=== PATIENT | male | born 1985 | race Caucasian/White ===

== ENCOUNTER 2016-12-31 02:06 | Inpatient (IN) | payer OTHER ==
[2016-12-31] VITALS (11 sets, daily range): BP systolic 52–99; BP diastolic 32–63; PULSE 107–126; RESP 19–20; TEMP 91.6–94.1; O2SAT 0–100
[~2016-12-31] VITALS: Ht 195.6 cm; Wt 74.6 kg
[2016-12-31 02:44] LABS: AUTOMATED NEUTROPHIL # 4.3 TH/MM3 (1.8-7.7); BASOPHIL % 0.3 % (0.0-2.0); EOSINOPHIL # 0.1 TH/MM3 (0-0.4); EOSINOPHIL % 1.5 % (0.0-4.0); HEMATOCRIT 24.6 % (39.0-51.0); LYMPH % 38.3 % (9.0-44.0); MEAN CELL VOLUME 94.2 FL (80.0-100.0); MEAN CORPUSCULAR HEMOGLOBIN 30.9 PG (27.0-34.0); MEAN CORPUSCULAR HGB CONC 32.8 % (32.0-36.0); MONO % 4.2 % (0.0-8.0); NEUT % 55.7 % (16.0-70.0); PLATELET COUNT 138 TH/MM3 (150-450); RED BLOOD COUNT 2.61 MIL/MM3 (4.50-5.90); WHITE BLOOD COUNT 7.7 TH/MM3 (4.0-11.0)
[2016-12-31 02:45] LABS: HEMO FLAGS AUTO DIFF
[2016-12-31] MEDS ORDERED: TRANEXAMIC ACID INJ 1,000 MG/10 ML AMP ONE (02:46)
[2016-12-31 02:47] LABS: I-STAT POTASSIUM 3.8 MMOL/L (3.5-4.9)
[2016-12-31 03:02] LABS: INTERNATIONAL NORMALIZED RATIO 2.1 RATIO; PROTHROMBIN TIME - PATIENT 23.5 SEC (9.8-11.6)
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
[2016-12-31] MEDS ORDERED: IOHEXOL 350 MG/ML 10 ML VIAL (for RAD DIAG) OTHER ONE (03:15)
[2016-12-31 03:17] LABS: APTT (PATIENT) 172.5 SEC (24.3-30.1)
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
[2016-12-31] MEDS ORDERED: 3% SALINE INJ 500 ML IV ONE (03:30)
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
[2016-12-31 03:35] LABS: BANDS 11 % (0-6); CORRECTED NUCLEATED RBC 1 /100 WBC (0-0); EOSINOPHILS 2 % (0-4); METAMYELOCYTES 7 % (0-1); MYELOCYTES 1 % (0-0); NEUTROPHIL # MANUAL DIFF 3.7 TH/MM3 (1.8-7.7); POLYS (SEG NEUTROPHILS) 29 % (16-70); SCAN/DIFF FINAL DIFF MANUAL; WBC DIFF SAMPLE 100
[2016-12-31 03:36] LABS: OVALOCYTES 1+ (NORMAL); PLATELET ESTIMATE SMEAR LOW (NORMAL); PLATELET MORPHOLOGY NORMAL (NORMAL)
[2016-12-31] MEDS ORDERED: SODIUM CHLOR 0.9% 1000 ML INJ 1,000 ML IV SCH (03:36)
[2016-12-31] MEDS ORDERED: ENALAPRILAT 1.25 MG/ML VIAL IV PRN (03:45)
[2016-12-31] MEDS ORDERED: ONDANSETRON HCL 4 MG/2 ML VIAL IV PRN (03:45)
[2016-12-31] MEDS ORDERED: PANTOPRAZOLE SODIUM 40 MG VIAL IVP SCH (03:45)
[2016-12-31] MEDS ORDERED: CHLORHEXIDINE GLUCONATE 2 % 1 PACK (2 CLOTHS) TOP PRN (03:45)
[2016-12-31] MEDS ORDERED: MISCELLANEOUS NURSING INFORMATION XX SCH (03:45)
[2016-12-31] MEDS ORDERED: SODIUM CHLORIDE 0.9% FLUSH 10 ML FLUSH IV FLUSH PRN (03:45)
[2016-12-31] MEDS ORDERED: NOREPINEPHRINE 4 MG/4 ML AMP ONE ×3 (03:55→06:04)
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
[2016-12-31] MEDS ORDERED: SODIUM BICARBONATE 8.4% INJ 50 MEQ/50 ML SYR IV PUSH ONE ×2 (04:00)
[2016-12-31] MEDS ORDERED: CHLORHEXIDINE GLUCONATE 2 % 1 PACK (2 CLOTHS) TOP SCH (04:00)
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
[2016-12-31] MEDS ORDERED: VASOPRESSIN INJ 40 UNITS in DEXTROSE 5% IN WATER 100ML INJ 98 ML IV SCH ×2 (04:29)
[2016-12-31] MEDS ORDERED: SODIUM BICARBONATE 8.4% INJ 50 ML ONE (04:30)
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
[2016-12-31 04:51] LABS: AUTOMATED NEUTROPHIL # 5.9 TH/MM3 (1.8-7.7); BASOPHIL % 0.4 % (0.0-2.0); EOSINOPHIL % 0.5 % (0.0-4.0); LYMPH % 23.8 % (9.0-44.0); LYMPHOCYTE # 1.9 TH/MM3 (1.0-4.8); MEAN CELL VOLUME 85.4 FL (80.0-100.0); MEAN CORPUSCULAR HEMOGLOBIN 30.2 PG (27.0-34.0); MEAN CORPUSCULAR HGB CONC 35.4 % (32.0-36.0); NEUT % 74.3 % (16.0-70.0); PLATELET COUNT 57 TH/MM3 (150-450); RED BLOOD COUNT 3.28 MIL/MM3 (4.50-5.90); RED CELL DISTRIBUTION WIDTH 14.8 % (11.6-17.2)
[2016-12-31 04:54] LABS: BLOOD GAS BASE EXCESS -14.8 mmol/L (-2-2); BLOOD GAS CARBOXYHEMOGLOBIN 0.5 % (0-4); BLOOD GAS HCO3 13 mmol/L (22-26); BLOOD GAS METHEMOGLOBIN 1.1 % (0-2); BLOOD GAS O2 HGB SATURATION 98 % (90-100); BLOOD GAS OXYGEN CONTENT 9.1 Vol % (12.0-20.0); BLOOD GAS PCO2 44 mmHg (38-42); BLOOD GAS PO2 512 mmHg (61-120); BLOOD GAS TOTAL HGB 5.6 G/DL (12.0-16.0); TEMP CORR TO 98.6
[2016-12-31 04:55] LABS: CRITICAL VALUE YES; DRAW SITE ART LINE; FIO2 100 %; OXYGEN DEVICE VENTILATOR; STAT NO; VENT SETTINGS PRVC/AC
[2016-12-31] MEDS ORDERED: PHENYLEPHRINE HCL 10 MG/ML VIAL ONE ×4 (05:04→06:16)
[2016-12-31 05:10] LABS: HEMO FLAGS AUTO DIFF
[2016-12-31 05:15] LABS: INTERNATIONAL NORMALIZED RATIO 1.8 RATIO; PROTHROMBIN TIME - PATIENT 20.7 SEC (9.8-11.6)
[2016-12-31 05:18] LABS: BICARBONATE 26.4 MEQ/L (21.0-32.0); CALCIUM-PROTEIN CORRECTED 8.3 MG/DL (8.5-10.1); POTASSIUM 4.5 MEQ/L (3.5-5.1); TOTAL BILIRUBIN ADULT 0.2 MG/DL (0.2-1.0)
[2016-12-31 05:21] LABS: APTT (PATIENT) 122.7 SEC (24.3-30.1); FIBRINOGEN LESS THAN 50 mg/dL (227-377)
[2016-12-31 05:30] LABS: BACTERIA, URINE MOD /hpf; BLOOD, URINE MOD (NEG); GLUCOSE,URINE NEG (NEG); HYALINE CAST, URINE 1 /lpf (RARE); KETONE, URINE NEG (NEG); MUCUS URINE MANY /lpf (OCC); NITRITE,URINE NEG (NEG); PH, URINE 5.5 (5.0-8.5); SQUAMOUS EPITHELIAL CELL URINE <1 /hpf (0-5); TRANSITIONAL EPI CELLS, URINE <1 /hpf; URINE COLOR YELLOW (YELLW/STRAW)
[2016-12-31 05:32] LABS: COMMENT (UR) CATH-CULTURE IND; CULTURE IF INDICATED CATH CULTURE IND
[2016-12-31 05:35] LABS: AMPHETAMINE, URINE NEG (NEG); BARBITURATES, URINE NEG (NEG); COCAINE, URINE NEG (NEG)
[2016-12-31 05:41] LABS: BLOOD GAS BASE EXCESS 14.9 mmol/L (-2-2); BLOOD GAS CARBOXYHEMOGLOBIN 1.2 % (0-4); BLOOD GAS HCO3 39 mmol/L (22-26); BLOOD GAS METHEMOGLOBIN 0.9 % (0-2); BLOOD GAS O2 HGB SATURATION 98 % (90-100); BLOOD GAS OXYGEN CONTENT 9.7 Vol % (12.0-20.0); BLOOD GAS PCO2 48 mmHg (38-42); BLOOD GAS PO2 327 mmHg (61-120); BLOOD GAS TOTAL HGB 6.4 G/DL (12.0-16.0); TEMP CORR TO 98.6
[2016-12-31 05:42] LABS: CRITICAL VALUE YES; DRAW SITE ART LINE; FIO2 100 %; LITER FLOW 15 L/M; OXYGEN DEVICE AMBU BAG
[2016-12-31 05:43] LABS: STAT YES
[2016-12-31 05:45] LABS: BANDS 9 % (0-6); CORRECTED NUCLEATED RBC 1 /100 WBC (0-0); NEUTROPHIL # MANUAL DIFF 6.2 TH/MM3 (1.8-7.7); PLATELET ESTIMATE SMEAR LOW (NORMAL); PLATELET MORPHOLOGY NORMAL (NORMAL); POLYS (SEG NEUTROPHILS) 69 % (16-70); WBC DIFF SAMPLE 100
[2016-12-31] MEDS ORDERED: TERBUTALINE INJ 1 MG/ML AMP SQ PRN (05:45)
[2016-12-31] MEDS ORDERED: MANNITOL INJ 50 ML ONE (05:45)
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
[2016-12-31 05:47] LABS: SCAN/DIFF FINAL DIFF MANUAL
[2016-12-31 05:48] LABS: BURR CELLS 1+ (NORMAL)
[2016-12-31] MEDS ORDERED: NOREPINEPHRINE INJ 16 MG in SODIUM CHLOR 0.9% 250 ML INJ 234 ML IV SCH ×3 (06:15→09:15)
[2016-12-31] MEDS ORDERED: SODIUM CHLOR 0.9% IV SCH (06:15)
[2016-12-31] MEDS ORDERED: EPINEPHRINE IV SCH (06:15)
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
[2016-12-31] MEDS ORDERED: NOREPINEPHRINE INJ 4 MG in SODIUM CHLOR 0.9% 250 ML INJ 246 ML IV SCH (07:00)
[2016-12-31] MEDS ORDERED: PHENYLEPHRINE HCL 160 MG/D5W 484 ML ADMIX IV SCH ×2 (07:00)
[2016-12-31] MEDS ORDERED: DOCUSATE SODIUM 100 MG CAP PO SCH (09:00)
[2016-12-31] MEDS ORDERED: BACITRACIN TOP OINT 15 GM TUBE TOP SCH (09:00)
--- NOTE | 2016-12-31 09:42 | DEATH SUM ---
Summary Demographics Date Pronounced : Dec 31, 2016 Time Of : 09:36 Preliminary Cause of : Other (Traumatic Brain Injury) Rob Campoverde MD Dec 31, 2016 09:42
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
[2016-12-31] MEDS ORDERED: MAGNESIUM SULFATE 40 MEQ/10 ML VIAL IV ONE (12:45)
[2016-12-31] MEDS ORDERED: SODIUM BICARBONATE 8.4% INJ 50 MEQ/50 ML SYR IV ONE (12:45)
[2016-12-31] MEDS ORDERED: EPINEPHrine HCL (1:10,000) 1 MG/10 ML SYRINGE IV ONE ×2 (12:45)
[2016-12-31] MEDS ORDERED: NOREPINEPHRINE 4 MG/4 ML AMP IV ONE (12:45)
[2016-12-31] MEDS ORDERED: EPINEPHrine HCL (1:1000) 30 MG/30 ML VIAL IV ONE (12:45)
[2016-12-31] MEDS ORDERED: CALCIUM CHLORIDE 10% SOLN 1 GRAM/10 ML SYR IV ONE (12:45)
[2016-12-31] MEDS ORDERED: WATER BACTERIOSTATIC 30 ML VIAL IV ONE (12:45)
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
== END 2016-12-31 12:46 | disposition expired | DRG 963 ==
LOC: NEPI 02:06 → EDBD 03:06 → NEDA 03:06 → N03B 03:30
PROVIDERS: ADMIT Surgery; ATTEND Surgery
PROC: 30233L1 Transfusion of Nonautologous Fresh Plasma into Peripheral Vein, Percutaneous Approach (ICD-10-PCS; principal; 2016-12-31)
PROC: 03HY32Z Insertion of Monitoring Device into Upper Artery, Percutaneous Approach (ICD-10-PCS; 2016-12-31)
PROC: 30233N1 Transfusion of Nonautologous Red Blood Cells into Peripheral Vein, Percutaneous Approach (ICD-10-PCS; 2016-12-31)
PROC: 5A1935Z Respiratory Ventilation, Less than 24 Consecutive Hours (ICD-10-PCS; 2016-12-31)
PROC: 05H633Z Insertion of Infusion Device into Left Subclavian Vein, Percutaneous Approach (ICD-10-PCS; 2016-12-31)
DX: T79.4XXA Traumatic shock, initial encounter; S32.810A Multiple fractures of pelvis with stable disruption of pelvic ring, initial encounter for closed fracture; D65 Disseminated intravascular coagulation [defibrination syndrome]; I49.01 Ventricular fibrillation; J96.00 Acute respiratory failure, unspecified whether with hypoxia or hypercapnia; S27.329A Contusion of lung, unspecified, initial encounter; D62 Acute posthemorrhagic anemia; G93.1 Anoxic brain damage, not elsewhere classified; S12.041A Nondisplaced lateral mass fracture of first cervical vertebra, initial encounter for closed fracture; S22.42XA Multiple fractures of ribs, left side, initial encounter for closed fracture; I46.9 Cardiac arrest, cause unspecified; Z66 Do not resuscitate; S02.80XA Fracture of other specified skull and facial bones, unspecified side, initial encounter for closed fracture; S02.91XA Unspecified fracture of skull, initial encounter for closed fracture; R40.2432 Glasgow coma scale score 3-8, at arrival to emergency department; Y92.411 Interstate highway as the place of occurrence of the external cause; V48.5XXA Car driver injured in noncollision transport accident in traffic accident, initial encounter
CPT/HCPCS: 31500; 70450; 70486; 71010; 71260; 72125; 72128; 72131; 72170; 74177; 80053; 80307; 81001; 82435; 82565; 82805; 82947; 84132; 84295; 84520; 85007; 85027; 85384; 85610; 85730; 86850; 86900; 86901; 86920; 87086; 94002; C9113; J0171; J2150; J2370; J3475; J7030; J7050; J7060; P9016; P9017; Q9967